=== PATIENT | female | born 2000 | race Caucasian/White ===

== ENCOUNTER 2020-10-20 04:00 | Inpatient (IN) | payer MEDICAID, OTHER ==
[~2020-10-20] VITALS: Ht 165.1 cm; Wt 79.4 kg
[2020-10-20 04:20] VITALS: BP 157/61
[2020-10-20] MEDS ORDERED: METHYLERGONOVINE 0.2 MG/ML AMP IM PRN ×2 (04:30→05:00)
[2020-10-20] MEDS ORDERED: LACTATED RINGERS 1,000 ML IV SCH (04:30)
[2020-10-20] MEDS ORDERED: OXYTOCIN 10 UNITS/ML VIAL IM SCH (04:30)
[2020-10-20] MEDS ORDERED: OXYTOCIN 10 UNITS/ML VIAL ONE (04:35)
[2020-10-20] MEDS ORDERED: HYDROcodone/APAP 5/325 MG 1 TAB TAB PO PRN (05:00)
[2020-10-20] MEDS ORDERED: METHYLERGONOVINE 0.2 MG TAB PO PRN (05:00)
[2020-10-20] MEDS ORDERED: MEASLES, MUMPS, AND RUBELLA 1 VIAL SQVAC ONE ×2 (05:00→20:04)
[2020-10-20] MEDS ORDERED: oxyCODONE/APAP 5/325 MG 1 TAB TAB PO PRN (05:00)
[2020-10-20] MEDS ORDERED: BENZOCAINE/MENTHOL 20%-0.5% 60 GM CAN TP PRN (05:00)
[2020-10-20] MEDS ORDERED: OXYTOCIN 10 UNITS/ML VIAL IM PRN (05:00)
[2020-10-20] MEDS ORDERED: TEMAZEPAM 15 MG CAP PO PRN (05:00)
[2020-10-20 05:30] LABS: HEMATOCRIT 37.1 % (36-48); HEMOGLOBIN 12.2 g/dL (12.0-16.0); LYMPHOCYTES # (AUTO) 0.8 K/uL (2.5-16.5); LYMPHOCYTES % (AUTO) 5.7 % (20.5-51.1); MEAN CORPUSCULAR HEMOGLOBIN 30 pg (27-31); MEAN CORPUSCULAR HGB CONC 33 g/dL (33-37); MEAN CORPUSCULAR VOLUME 90.8 fL (80-94); MONOCYTES # (AUTO) 0.5 K/uL (0.8-1.0); MONOCYTES % (AUTO) 3.5 % (1.7-9.3); NEUTROPHILS % (AUTO) 90.8 % (42.2-75.2); PLATELET COUNT (AUTO) 206 K/uL (140-450); RED BLOOD CELL COUNT(AUTO) 4.09 MIL/uL (4.20-5.40); RED CELL DISTRIBUTION WIDTH 13.7 % (11.6-13.7); WHITE BLOOD COUNT (AUTO) 14.4 K/uL (4.5-11.0)
[2020-10-20] MEDS ORDERED: PNV91TAB8 PO (06:00)
[2020-10-20] MEDS ORDERED: FERR325E14 PO (06:00)
[2020-10-20 06:06] LABS: ANION GAP 15.3 (8-16); CARBON DIOXIDE 19.3 mmol/L (21-32); CREATININE 0.8 mg/dL (0.6-1.3); POTASSIUM 3.6 mmol/L (3.5-5.1); TOTAL BILIRUBIN 0.7 mg/dL (0.0-1.0)
[2020-10-20] MEDS ORDERED: IBUPROFEN 800 MG TAB ONE (07:45)
[2020-10-20] MEDS ORDERED: IBUPROFEN 800 MG TAB PO PRN (07:50)
--- NOTE | 2020-10-20 08:41 | NUR ---
PATIENT HAS BEEN SCREENED AND CATEGORIZED LOW NUTRITION RISK. PATIENT WILL BE SEEN WITHIN 7 DAYS OF ADMISSION. 10/26/[address]
[2020-10-20 10:31] LABS: RAPID PLASMA REAGIN NON-REACTIVE (Non Reactiv)
[2020-10-20 17:32] LABS: BILIRUBIN,URINE NEGATIVE (NEGATIVE); BLOOD, URINE 3+ (NEGATIVE); COLOR,URINE YELLOW (YELLOW); LEUKOCYTE ESTERASE ,URINE TRACE (NEGATIVE); NITRITE, URINE NEGATIVE (NEGATIVE); UGLUCOSE 1+ (NEGATIVE)
[2020-10-20 17:42] LABS: APPEARANCE,URINE BLOODY (CLEAR)
[2020-10-20 17:55] LABS: RBC,URINE TOO NUMEROUS TO COUN /HPF (0-5); WBC,URINE 0-5 /HPF (0-5)
[2020-10-20] MEDS ORDERED: DOCUSATE SOD/SENNA 50/8.6 MG 1 TAB PO SCH (21:00)
[2020-10-21 06:36] LABS: HEMATOCRIT 31.7 % (36-48); HEMOGLOBIN 10.6 g/dL (12.0-16.0)
[2020-10-21 12:07] LABS: HEPATITIS B SURFACE ANTIGEN Negative (Negative)
== END 2020-10-21 15:15 | disposition home or self-care (01) | DRG 560 ==
LOC: MFCC 04:00 → UNDOADMIN 04:00 → MFCC 04:05
PROVIDERS: ADMIT Obstetrics & Gynecology; ATTEND Obstetrics & Gynecology
PROC: 10E0XZZ Delivery of Products of Conception, External Approach (ICD-10-PCS; principal; 2020-10-20)
PROC: 0UQGXZZ Repair Vagina, External Approach (ICD-10-PCS; 2020-10-20)
PROC: 3E0134Z Introduction of Serum, Toxoid and Vaccine into Subcutaneous Tissue, Percutaneous Approach (ICD-10-PCS; 2020-10-20)
DX: O69.81X0 Labor and delivery complicated by cord around neck, without compression, not applicable or unspecified (principal); O71.4 Obstetric high vaginal laceration alone; Z20.822 Contact with and (suspected) exposure to COVID-19; Z37.0 Single live birth; Z3A.38 38 weeks gestation of pregnancy; Z23 Encounter for immunization
CPT/HCPCS: 36415; 59409; 80053; 81001; 85018; 85025; 86592; 86762; 86886; 86900; 86901; 87340; 87653-90; 90707; J2590

== ENCOUNTER 2023-03-17 13:50 | Inpatient (IN) | payer OTHER ==
[~2023-03-17] VITALS: Ht 162.6 cm; Wt 72.6 kg
[~2023-03-17 13:50] MED LIST: FERR325E14 PO; PNV91TAB8 PO
[2023-03-17] MEDS ORDERED: METHYLERGONOVINE 0.2 MG/ML AMP IM PRN ×3 (14:15→19:05)
[2023-03-17 14:50] LABS: BASOPHILS % (AUTO) 0.3 % (0.0-2.0); HEMATOCRIT 31.3 % (36-48); HEMOGLOBIN 10.5 g/dL (12.0-16.0); LYMPHOCYTES # (AUTO) 0.9 K/uL (2.5-16.5); LYMPHOCYTES % (AUTO) 6.3 % (20.5-51.1); MEAN CORPUSCULAR HEMOGLOBIN 29 pg (27-31); MEAN CORPUSCULAR HGB CONC 34 g/dL (33-37); MEAN CORPUSCULAR VOLUME 87.3 fL (80-94); MONOCYTES # (AUTO) 0.7 K/uL (0.8-1.0); MONOCYTES % (AUTO) 5.3 % (1.7-9.3); NEUTROPHILS # (AUTO) 12.4 K/uL (1.8-7.7); NEUTROPHILS % (AUTO) 88.1 % (42.2-75.2); PLATELET COUNT (AUTO) 184 K/uL (140-450); RED BLOOD CELL COUNT(AUTO) 3.58 MIL/uL (4.20-5.40); RED CELL DISTRIBUTION WIDTH 14.1 % (11.6-13.7); WHITE BLOOD COUNT (AUTO) 14.1 K/uL (4.8-10.8)
[2023-03-17 15:12] LABS: ALBUMIN 2.1 g/dL (3.4-5.0); ANION GAP 13.5 (8-16); CALCIUM 8.7 mg/dL (8.5-10.1); CARBON DIOXIDE 21.3 mmol/L (21-32); CREATININE 0.6 mg/dL (0.6-1.3); POTASSIUM 3.8 mmol/L (3.5-5.1); TOTAL BILIRUBIN 0.6 mg/dL (0.0-1.0); TOTAL PROTEIN, SERUM 5.9 g/dL (6.4-8.2)
[2023-03-17] MEDS: IBUPROFEN 600 MG TAB PO PRN (16:13)
[2023-03-17] MEDS ORDERED: METHYLERGONOVINE 0.2 MG TAB PO PRN (18:15)
[2023-03-17] MEDS ORDERED: MEASLES, MUMPS, AND RUBELLA 1 VIAL SQVAC ONE (18:15)
[2023-03-17] MEDS ORDERED: IBUPROFEN 800 MG TAB PO PRN (18:15)
[2023-03-17] MEDS ORDERED: BENZOCAINE/MENTHOL 20%-0.5% 60 GM CAN TP PRN (18:15)
[2023-03-17] MEDS ORDERED: OXYTOCIN 10 UNITS/ML VIAL IM PRN (18:15)
[2023-03-18 05:36] LABS: HEMATOCRIT 26.3 % (36-48); HEMOGLOBIN 8.9 g/dL (12.0-16.0)
[2023-03-18] MEDS ORDERED: FLU VACCINE QS2022-23 0.5 ML SYR IMVAC ONE (07:55)
[2023-03-18] MEDS ORDERED: FLU VACCINE QS2023-24 0.5 ML SYR IMVAC ONE (08:30)
[2023-03-19] MEDS: IBUPROFEN 600 MG TAB PO PRN (06:29)
== END 2023-03-19 13:10 | disposition home or self-care (01) | DRG 560 ==
LOC: MFCC 13:50
PROVIDERS: ADMIT Obstetrics & Gynecology; ATTEND Obstetrics & Gynecology
PROC: 10E0XZZ Delivery of Products of Conception, External Approach (ICD-10-PCS; principal; 2023-03-17)
DX: O80 Encounter for full-term uncomplicated delivery (principal); Z37.0 Single live birth; Z20.822 Contact with and (suspected) exposure to COVID-19; Z3A.39 39 weeks gestation of pregnancy
CPT/HCPCS: 36415; 59409; 80053; 85018; 85025; 86592; 86886; 86900; 86901; 90715